=== PATIENT | female | born 1960 | race Caucasian/White ===

== ENCOUNTER 2020-05-08 16:11 | Inpatient (IN) | payer BC, SELFPAY ==
[~2020-05-08] VITALS: Ht 160 cm; Wt 98.0 kg
[2020-05-08 17:06] VITALS: Ht 160 cm; Wt 98.0 kg
[2020-05-08 17:38] LABS: CALCIUM 8.1 mg/dL (8.5-10.1); CARBON DIOXIDE 22.5 mmol/L (21-32); CHLORIDE SERUM 98 mmol/L (98-107); CREATININE SERUM 1.1 mg/dL (0.6-1.0); GFR1 54 mL/min; GLUCOSE SERUM 335 mg/dL (74-106); POTASSIUM SERUM 3.7 mmol/L (3.5-5.1); SODIUM SERUM 134 mmol/L (136-145)
[2020-05-08 17:41] LABS: BASOPHIL % 0.1 % (0.2-1.3); PLATELET COUNT 216 x10^3mcL (179-408); RED CELL DISTRIBUTION WIDTH 13.9 % (12.3-17.7)
[2020-05-08 17:43] LABS: ALKALINE PHOSPHATASE 103 U/L (46-116); ALT/SGPT 18 U/L (14-59); AST/SGOT 12 U/L (15-37); BILIRUBIN TOTAL 0.7 mg/dL (0.20-1.00); TOTAL PROTEIN, SERUM 6.7 g/dL (6.4-8.2)
[2020-05-08 19:07] LABS: UA SPECIFIC GRAVITY 1.025 (1.005-1.035); microscopic required? YES; urine erythrocyte TRACE (NEGATIVE)
[2020-05-08] MEDS ORDERED: FORTAMET1000 MG PO (19:57)
[2020-05-08 21:11] LABS: CHOLESTEROL/HDL RATIO 2.1
[2020-05-08 21:47] VITALS: BP 88/50
[2020-05-09] VITALS (7 sets, daily range): BP systolic 90–134; BP diastolic 53–66
[2020-05-09 05:30] LABS: BASOPHIL % 0.2 % (0.2-1.3); PLATELET COUNT 187 x10^3mcL (179-408); RED CELL DISTRIBUTION WIDTH 13.9 % (12.3-17.7)
[2020-05-09 05:47] LABS: CALCIUM 7.2 mg/dL (8.5-10.1); CARBON DIOXIDE 21.4 mmol/L (21-32); CHLORIDE SERUM 104 mmol/L (98-107); CREATININE SERUM 0.8 mg/dL (0.6-1.0); GFR1 > 60 mL/min; GLUCOSE SERUM 294 mg/dL (74-106); MAGNESIUM 1.6 mg/dL (1.8-2.4); POTASSIUM SERUM 3.4 mmol/L (3.5-5.1); SODIUM SERUM 137 mmol/L (136-145)
[2020-05-10 05:33] VITALS: BP 125/61
[2020-05-10 05:55] LABS: BASOPHIL % 0.3 % (0.2-1.3); PLATELET COUNT 164 x10^3mcL (179-408); RED CELL DISTRIBUTION WIDTH 13.6 % (12.3-17.7)
[2020-05-10 05:59] LABS: CALCIUM 7.4 mg/dL (8.5-10.1); CARBON DIOXIDE 23.5 mmol/L (21-32); CHLORIDE SERUM 103 mmol/L (98-107); CREATININE SERUM 0.6 mg/dL (0.6-1.0); GFR1 > 60 mL/min; GLUCOSE SERUM 248 mg/dL (74-106); MAGNESIUM 2.4 mg/dL (1.8-2.4); PHOSPHOROUS 1.6 mg/dL (2.5-4.9); POTASSIUM SERUM 3.6 mmol/L (3.5-5.1); SODIUM SERUM 135 mmol/L (136-145)
[2020-05-10 08:07] VITALS: BP 130/61
[2020-05-10 12:03] VITALS: BP 128/61
[2020-05-10 16:07] VITALS: BP 130/64
[2020-05-10 20:02] VITALS: BP 129/61
[2020-05-11 06:15] VITALS: BP 136/67
[2020-05-11 06:41] LABS: BASOPHIL % 0.4 % (0.2-1.3); PLATELET COUNT 174 x10^3mcL (179-408); RED CELL DISTRIBUTION WIDTH 13.9 % (12.3-17.7)
[2020-05-11 07:21] LABS: CALCIUM 8.1 mg/dL (8.5-10.1); CARBON DIOXIDE 23.8 mmol/L (21-32); CHLORIDE SERUM 101 mmol/L (98-107); CREATININE SERUM 0.6 mg/dL (0.6-1.0); GFR1 > 60 mL/min; GLUCOSE SERUM 194 mg/dL (74-106); POTASSIUM SERUM 3.3 mmol/L (3.5-5.1); SODIUM SERUM 134 mmol/L (136-145)
[2020-05-11 08:09] VITALS: BP 128/53
[2020-05-11 12:14] VITALS: BP 130/56
[2020-05-11 16:09] VITALS: BP 118/62
[2020-05-11 20:39] VITALS: BP 128/58
[2020-05-12 05:05] VITALS: BP 117/70
[2020-05-12 07:40] LABS: CALCIUM 7.7 mg/dL (8.5-10.1); CARBON DIOXIDE 26.6 mmol/L (21-32); CHLORIDE SERUM 102 mmol/L (98-107); CREATININE SERUM 0.7 mg/dL (0.6-1.0); GFR1 > 60 mL/min; GLUCOSE SERUM 161 mg/dL (74-106); POTASSIUM SERUM 3.1 mmol/L (3.5-5.1); SODIUM SERUM 136 mmol/L (136-145)
[2020-05-12 07:49] LABS: BASOPHIL % 0.4 % (0.2-1.3); PLATELET COUNT 204 x10^3mcL (179-408); RED CELL DISTRIBUTION WIDTH 13.8 % (12.3-17.7)
[2020-05-12 08:35] VITALS: BP 123/56
[2020-05-12 12:33] VITALS: BP 142/66
[2020-05-12 17:20] VITALS: BP 122/61
[2020-05-12 17:23] VITALS: BP 122/61
[2020-05-12 21:23] VITALS: BP 123/67
[2020-05-13 06:15] LABS: BASOPHIL % 0.5 % (0.2-1.3); PLATELET COUNT 247 x10^3mcL (179-408); RED CELL DISTRIBUTION WIDTH 14.1 % (12.3-17.7)
[2020-05-13 06:21] VITALS: BP 131/66
[2020-05-13 07:06] LABS: CALCIUM 7.6 mg/dL (8.5-10.1); CARBON DIOXIDE 25.9 mmol/L (21-32); CHLORIDE SERUM 102 mmol/L (98-107); CREATININE SERUM 0.6 mg/dL (0.6-1.0); GFR1 > 60 mL/min; GLUCOSE SERUM 132 mg/dL (74-106); POTASSIUM SERUM 3.1 mmol/L (3.5-5.1); SODIUM SERUM 138 mmol/L (136-145)
[2020-05-13 08:51] VITALS: BP 142/71
[2020-05-13 12:26] VITALS: BP 132/91
[2020-05-13 16:45] VITALS: BP 127/67
[2020-05-13 21:15] VITALS: BP 131/68
[2020-05-14 05:25] VITALS: BP 109/67
[2020-05-14 07:29] LABS: BASOPHIL % 0.4 % (0.2-1.3); PLATELET COUNT 296 x10^3mcL (179-408); RED CELL DISTRIBUTION WIDTH 13.7 % (12.3-17.7)
[2020-05-14 07:30] LABS: CALCIUM 7.6 mg/dL (8.5-10.1); CARBON DIOXIDE 24.7 mmol/L (21-32); CHLORIDE SERUM 102 mmol/L (98-107); CREATININE SERUM 0.7 mg/dL (0.6-1.0); GFR1 > 60 mL/min; GLUCOSE SERUM 160 mg/dL (74-106); POTASSIUM SERUM 3.3 mmol/L (3.5-5.1); SODIUM SERUM 138 mmol/L (136-145)
[2020-05-14 08:34] VITALS: BP 145/76
[2020-05-14 12:08] VITALS: BP 136/67
[2020-05-14 16:34] VITALS: BP 142/64
[2020-05-14 19:15] VITALS: BP 157/61
[2020-05-15 05:50] VITALS: BP 146/70
[2020-05-15 06:52] LABS: BASOPHIL % 0.4 % (0.2-1.3); PLATELET COUNT 380 x10^3mcL (179-408); RED CELL DISTRIBUTION WIDTH 13.8 % (12.3-17.7)
[2020-05-15 07:09] LABS: CALCIUM 8.4 mg/dL (8.5-10.1); CARBON DIOXIDE 26.6 mmol/L (21-32); CHLORIDE SERUM 102 mmol/L (98-107); CREATININE SERUM 0.6 mg/dL (0.6-1.0); GFR1 > 60 mL/min; GLUCOSE SERUM 150 mg/dL (74-106); POTASSIUM SERUM 3.7 mmol/L (3.5-5.1); SODIUM SERUM 137 mmol/L (136-145)
[2020-05-15 08:24] VITALS: BP 145/58
[2020-05-15] MEDS ORDERED: LANTI SQ (09:20)
[2020-05-15] MEDS ORDERED: LIPI20 PO (09:20)
[2020-05-15] MEDS ORDERED: LEVOFLOXACIN500 M1 PO (09:21)
[2020-05-15] MEDS ORDERED: NOVI SQ (10:53)
[2020-05-15] MEDS ORDERED: COZAAR25 M1 GT (10:53)
[2020-05-15] MEDS ORDERED: ALTOPREV40 M2 PO (10:54)
[2020-05-15 10:56] VITALS: BP 145/58
[2020-05-15 12:46] VITALS: BP 138/64
== END 2020-05-15 13:00 | disposition home or self-care (01) | DRG 871 ==
LOC: ED 16:11 → IC 19:45 → DU 05-09 16:20
PROVIDERS: Emergency Medicine; Family Medicine; ADMIT Internal Medicine; ATTEND Internal Medicine
DX: A41.9 Sepsis, unspecified organism (principal); G93.41 Metabolic encephalopathy; R65.21 Severe sepsis with septic shock; J96.01 Acute respiratory failure with hypoxia; Z20.822 Contact with and (suspected) exposure to COVID-19; E78.5 Hyperlipidemia, unspecified; Z79.899 Other long term (current) drug therapy; Z79.4 Long term (current) use of insulin; E11.65 Type 2 diabetes mellitus with hyperglycemia; I10 Essential (primary) hypertension; E87.6 Hypokalemia; E83.42 Hypomagnesemia; E83.51 Hypocalcemia; E86.0 Dehydration; Z90.710 Acquired absence of both cervix and uterus; D64.9 Anemia, unspecified
CPT/HCPCS: 82962; 83880; 85378; G0378; J1644; J1815; J2405; J2543; J2550; J3370; J3475; J3490; J7030; J7050; U0003